=== PATIENT | female | born 1960 | race Caucasian/White ===

== ENCOUNTER 2022-02-21 22:10 | Emergency (ER) | payer OTHER ==
[2022-02-22 00:44] LABS: HEMOGLOBIN 17.2 gm/dl (12.3-15.3); RED BLOOD COUNT 5.16 M/UL (4.00-5.10); WHITE BLOOD COUNT 16.2 K/UL (4.5-11.0)
[2022-02-22] MEDS ORDERED: ZOFRAN ODT 4 MG4 MG SL (04:36)
[2022-02-22] MEDS ORDERED: EPIPEN 2-P0.3 MG/0.3 INJ (04:36)
== END 2022-02-22 04:46 | disposition home or self-care (01) ==
LOC: ER1 22:10
PROVIDERS: Student in an Organized Health Care Education/Training Program
DX: K52.9 Noninfective gastroenteritis and colitis, unspecified (principal); T78.40XA Allergy, unspecified, initial encounter; I10 Essential (primary) hypertension; E03.9 Hypothyroidism, unspecified; Z88.5 Allergy status to narcotic agent
CPT/HCPCS: 80053; 83690; 85025; 96372; 96374; 96375; 99284; J1100; J1885; J2405